=== PATIENT | male | born 1985 | race Asian ===

== ENCOUNTER 2018-03-12 11:42 | Observation (INO) | payer OTHER ==
--- NOTE | 2018-03-12 12:14 | EDPHY ---
H & P Stated Complaint: L flank pain Time Seen by Provider: 03/12/18 12:12 HPI/ROS: HPI: This is a 32-year-old male who presents with Chief Complaint: Left flank Location: Left flank Quality: Pain Duration: 3 days Signs and Symptoms: no fever, + nausea, no vomiting, no hematemesis, no blood in stool, no abdominal bloating, no diarrhea, no back pain, no urinary symptoms , no testicular/groin pain, no indigestion, no chest pain, no shortness of breath Timing: Acute, constant Severity: Moderate intensity Context: Patient reports that he has a history of kidney stones last 1 approximately 3 years ago that required ESWL in [place], presents with sudden onset of left flank pain in the upper portion approximately 3 days ago. He reports that the pain has remained in flank at same spot entire time. Last urination was approximately 2 hr prior to arrival. Denies any blood in his urine. Denies any fever, vomiting. Does report some nausea. Modifying Factors: Tylenol and ibuprofen without relief Comment: ROS: A comprehensive 10 system review of systems is otherwise negative aside from elements mentioned in the history of present illness. MEDICAL/SURGICAL/SOCIAL HISTORY: Medical history: Generally healthy. Does not take any regular medications. Surgical history: Denies Social history: Nonsmoker. Family history noncontributory. CONSTITUTIONAL: Mild distress male, awake and alert, no obvious distress HEENT: Atraumatic and normocephalic, PERRL, EOMI. Nares patent; no rhinorrhea; no nasal mucosal edema. Tympanic membranes clear. Oropharynx clear, no exudate and moist pink mucosa. Airway patent. No lymphadenopathy. No meningismus. Cardiovascular: Normal S1/S2, regular rate, regular rhythm, without murmur rub or gallop. PULMONARY/CHEST: Symmetrical and nontender. Clear to auscultation bilaterally. Good air movement. No accessory muscle usage. ABDOMEN: Soft, nondistended, nontender, no rebound, + guarding, no peritoneal signs, no masses or organomegaly. Left CVAT. EXTREMITIES: 2/2 pulses, strength 5/5, no deformities, no clubbing, no cyanosis or edema. NEUROLOGICAL: no focal neuro deficits. GCS 15. SKIN: Warm and dry, no erythema. no rash. Good capillary refill. Source: Patient Exam Limitations: No limitations - Personal History Current Tetanus/Diphtheria Vaccine: Unsure Current Tetanus Diphtheria and Acellular Pertussis (TDAP): Unsure - Medical/Surgical History Hx Asthma: No Hx Chronic Respiratory Disease: No Hx Diabetes: No Hx Cardiac Disease: No Hx Renal Disease: No Hx Cirrhosis: No Hx Alcoholism: No Hx HIV/AIDS: No Hx Splenectomy or Spleen Trauma: No Other PMH: kidney stones - Social History Smoking Status: Never smoked Constitutional: Initial Vital Signs Temperature (C) 36.8 C 03/12/18 11:51 Heart Rate 77 03/12/18 11:51 Respiratory Rate 16 03/12/18 11:51 Blood Pressure 144/86 H 03/12/18 11:51 O2 Sat (%) 94 03/12/18 11:51 O2 Delivery Mode Room Air Allergies/Adverse Reactions: No Known Allergies Allergy (Unverified 03/12/18 11:50) Home Medications: Medication Instructions Recorded Ibuprofen 03/12/18 Tylenol 03/12/18 Medical Decision Making - Diagnostics Imaging Results: Imaging Impressions Abdomen/Pelvis CT 03/12/18 12:34 Impression: Left UPJ calculus measuring 7.8 mm with associated mild hydronephrosis. Findings and recommendations discussed with Erica Paz at 1326 hour, 2017. ED Course/Re-evaluation: Vital signs reviewed and stable upon arrival. No systemic signs. IV access, laboratory studies, CT abdomen and pelvis scan without contrast, urinalysis ordered Patient given 1 L normal saline, IV morphine 4 mg, IV Toradol 30 mg, IV Zofran 4 mg 1317: Labs reviewed. No leukocytosis. BUN 31, creatinine 1.6. Urinalysis negative, no hematoma, no infection. 1325: Called by radiologist, Dr. Conteh, who reports that CT abdomen and pelvis scan shows 7.8 mm stone on the left at the UPJ with mild hydronephrosis Given Flomax. 1337: Reassessed patient who reports pain is now 7/10. Patient is concerned that he will be unable to pass this stone as it was a similar sized requiring lithotripsy back in [place] 3 years ago. ED decision to consult for admission as patient will likely require stent versus lithotripsy with continued pain management. Spoke with hospitalist, Madina, who kindly agrees to admit patient to med surg under the care of Dr. Soares. Spoke with urology, Dr. Au, who kindly agrees to consult on the patient. This patient was seen under the supervision of my secondary supervising physician. I evaluated care for this patient independently. Discussed this patient with Dr. Issa who did not see the patient. Differential Diagnosis: Flank pain including but not limited to musculoskeletal causes, kidney stone, pyelonephritis, shingles, and intra-abdominal causes such as diverticulitis and appendicitis. - Data Points Laboratory Results: Laboratory Results 03/12/18 12:00 03/12/18 12:00 03/12/18 03/12/18 03/12/18 12:00 12:00 11:55 WBC 9.30 10^3/uL 10^3/uL (3.80-9.50) RBC 5.52 10^6/uL 10^6/uL (4.40-6.38) Hgb 16.1 g/dL g/dL (13.7-17.5) Hct 47.7 % % (40.0-51.0) MCV 86.4 fL fL (81.5-99.8) MCH 29.2 pg pg (27.9-34.1) MCHC 33.8 g/dL g/dL (32.4-36.7) RDW 11.6 % % (11.5-15.2) Plt Count 295 10^3/uL 10^3/uL (150-400) MPV 9.5 fL fL (8.7-11.7) Neut % (Auto) 73.5 % % (39.3-74.2) Lymph % (Auto) 15.5 % % (15.0-45.0) [place] % (Auto) 9.2 % % (4.5-13.0) Eos % (Auto) 1.3 % % (0.6-7.6) Baso % (Auto) 0.3 % % (0.3-1.7) Nucleat RBC Rel Count 0.0 % % (0.0-0.2) Absolute Neuts (auto) 6.83 10^3/uL H 10^3/uL (1.70-6.50) Absolute Lymphs (auto) 1.44 10^3/uL 10^3/uL (1.00-3.00) Absolute Monos (auto) 0.86 10^3/uL H 10^3/uL (0.30-0.80) Absolute Eos (auto) 0.12 10^3/uL 10^3/uL (0.03-0.40) Absolute Basos (auto) 0.03 10^3/uL 10^3/uL (0.02-0.10) Absolute Nucleated RBC 0.00 10^3/uL 10^3/uL (0-0.01) Immature Gran % 0.2 % % (0.0-1.1) Immature Gran # 0.02 10^3/uL 10^3/uL (0.00-0.10) Sodium 136 mEq/L mEq/L (135-145) Potassium 3.7 mEq/L mEq/L (3.5-5.2) Chloride 105 mEq/L mEq/L (97-110) Carbon Dioxide 24 mEq/l mEq/l (22-31) Anion Gap 7 mEq/L mEq/L (6-14) BUN 31 mg/dL H mg/dL (7-23) Creatinine 1.6 mg/dL H mg/dL (0.7-1.3) Estimated GFR 51 Glucose 91 mg/dL mg/dL (70-100) Calcium 9.4 mg/dL mg/dL (8.5-10.4) Urine Color YELLOW Urine Appearance HAZY Urine pH 6.0 (5.0-7.5) Ur Specific [place] 1.027 (1.002-1.030) Urine Protein NEGATIVE (NEGATIVE) Urine Ketones NEGATIVE (NEGATIVE) Urine Blood NEGATIVE (NEGATIVE) Urine Nitrate NEGATIVE (NEGATIVE) Urine Bilirubin NEGATIVE (NEGATIVE) Urine Urobilinogen NEGATIVE EU EU (0.2-1.0) Ur Leukocyte Esterase NEGATIVE (NEGATIVE) Urine Glucose NEGATIVE (NEGATIVE) Medications Given: Discontinued Medications Sodium Chloride (Ns) 1,000 mls @ 0 mls/hr IV ONCE ONE; Wide Open PRN Reason: Protocol Stop: 03/12/18 12:34 Last Admin: 03/12/18 13:14 Dose: 1,000 mls Ketorolac Tromethamine (Toradol) 30 mg IVP EDNOW ONE Stop: 03/12/18 12:34 Last Admin: 03/12/18 13:14 Dose: 30 mg Morphine Sulfate (Morphine) 4 mg IVP EDNOW ONE Stop: 03/12/18 12:35 Last Admin: 03/12/18 13:14 Dose: 4 mg Ondansetron HCl (Zofran) 4 mg IVP EDNOW ONE Stop: 03/12/18 12:34 Last Admin: 03/12/18 13:15 Dose: 4 mg Tamsulosin HCl (Flomax) 0.4 mg PO EDNOW ONE Stop: 03/12/18 13:33 Last Admin: 03/12/18 13:39 Dose: 0.4 mg Departure - Departure Disposition: [facility] Inpatient Acute Clinical Impression: Ureterolithiasis, JOSE R (acute kidney injury), Hydronephrosis due to obstruction of ureter, Intractable abdominal pain Condition: Fair
[2018-03-12] MEDS ORDERED: ONDANSETRON 4 MG/2 ML VIAL IVP ONE (12:33)
[2018-03-12] MEDS ORDERED: NS 1,000 ML IV ONE (12:33)
[2018-03-12] MEDS ORDERED: KETOROLAC 30 MG/1 ML SDV IVP ONE (12:33)
[2018-03-12 12:47] LABS: PLATELET COUNT 295 10^3/uL (150-400)
[2018-03-12] MEDS ORDERED: TAMSULOSIN HCL 0.4 MG CAP PO ONE (13:32)
--- NOTE | 2018-03-12 15:46 | ASMTCMCOM ---
CM Note CM Note Notes: Chart review for discharge planning: Patient is a 32 year old male admitted via [facility] ED for left flank pain, patient reports history of kidney stones. Likely to require stent vs. Lithotripsy. CM to follow. D/C Plan: Likely independent. Date Signed: 03/12/2018 03:46 PM Electronically Signed By:Kandace Kruse
[2018-03-12] MEDS ORDERED: HYDROmorphONE/DILAUDID 6 MG/30 ML PCA IV PRN (16:09)
[2018-03-12] MEDS ORDERED: NALOXONE HCL 0.4 MG/ML INJ IVP PRN (16:09)
[2018-03-12] MEDS ORDERED: PROMETHAZINE HCL 25 MG/ML INJ IVP PRN (16:36)
[2018-03-12] MEDS ORDERED: ACETAMINOPHEN 325 MG TAB PO PRN (16:36)
[2018-03-12] MEDS ORDERED: ONDANSETRON DISINTEGRATING 4 MG TAB PO PRN (16:36)
[2018-03-12] MEDS ORDERED: ONDANSETRON 4 MG/2 ML VIAL IVP PRN (16:36)
--- NOTE | 2018-03-12 17:23 | GHP ---
DATE OF ADMISSION: 03/12/2018 HISTORY OF PRESENT ILLNESS: The patient is a 32-year-old gentleman with a history of nephrolithiasis requiring extracorporeal shock wave lithotripsy in the past who presents with left flank pain that b maddie about 3 days ago. It has been waxing and waning. It is in the same spot. He has been drinking okay. He tells me he did have some blood in his urine, he told the ER physician that he did not. H e has no fever. No vomiting, although he does have some nausea. He has been taking Tylenol, ibuprof en without relief. REVIEW OF SYSTEMS: Complete 10-point review of systems conducted negative, except as noted in the HP I. PAST MEDICAL HISTORY: Nephrolithiasis. ALLERGIES: There are no known drug allergies. HOME MEDICATIONS: Tylenol, ibuprofen. SOCIAL HISTORY: No tobacco. No alcohol. He lives in [place]. 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 FAMILY HISTORY: Reviewed and unremarkable, including no kidney stones. PHYSICAL EXAMINATION: VITAL SIGNS: Temp 36.6, blood pressure 122/70, pulse 74, breathing 16 times a minute, 94% on room air. GENERAL: In no acute distress. HEENT: Sclerae anicteric. Oropharynx cl ear. Mucous membranes moist. NECK: Supple. No lymphadenopathy or JVD. LUNGS: Clear to auscultat ion bilaterally. HEART: S1, S2. ABDOMEN: Soft, nontender, nondistended. LOWER EXTREMITIES: No e catherine. Calves nontender. SKIN: Without rash. NEUROLOGIC: Nonfocal. LABORATORY/IMAGING: CT reviewed by me shows 7.8 mm stone at the left UVJ with some perinephric stran ding and hydronephrosis. Discussed the case with FREDIS Smithin the emergency department. UA negative. Sodium 136, potassium 3.7, chloride 105, bicarb 24, BUN 31, creatinine 1.6, unknown bas timmy. White count 9, hematocrit 47, platelets 295,000. ASSESSMENT/PLAN: A 32-year-old gentleman with nephrolithiasis. 1. Nephrolithiasis. This is unlikely to pass on its own given its size. I have started him on Flom ax and will strain his urine. Urology will see him in the morning. I have confirmed that they have, in fact, been called. I have made him n.p.o. past midnight. 2. Acute kidney injury. Unknown baseline. I assume he has a normal baseline given his age and abse nce of other comorbidities. I will provide with intravenous fluids. The hydronephrosis is noted. U ltimately, he needs resolution of this with stone removal. 3. Pain. Dilaudid patient controlled analgesia. 4. Nausea. Phenergan intravenous. DISPOSITION: Observation status. /[id number]/MODL
[2018-03-12] MEDS: NS 1,000 ML IV SCH (20:20)
--- NOTE | 2018-03-13 02:04 | GCON ---
DATE OF CONSULTATION: 03/12/2018 HISTORY OF PRESENT ILLNESS: This is a 32-year-old gentleman with a history of nephrolithiasis in the past, who presents with left flank pain about 3 days ago. It has been waxing and waning. He did make an appointment with the urologists at [facility] for next week regarding this pain as he suspected it was another stone, but he did come here for a visit. He has had no fever, no vomiting, but he does have nausea, and he was admitted for pain control and for medical management and possible surgical management of the stone. REVIEW OF SYSTEMS: A 10-point review of systems is negative, except for as noted in the HPI. PAST MEDICAL HISTORY: Significant for nephrolithiasis. ALLERGIES: No known drug allergies. HOME MEDICATIONS: Tylenol and ibuprofen. SOCIAL HISTORY: No tobacco. No alcohol. He lives in [place]. 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 FAMILY HISTORY: No history of kidney stones. PHYSICAL EXAMINATION: VITAL SIGNS: Afebrile. Blood pressures are 120s over 70s. Pulse in the 70s. Respiratory rate is 16. 94% on room air. GENERAL: No acute distress. HEENT: Normocephalic, atraumatic. NECK: Supple. Trachea is midline. No lymphadenopathy. LUNGS: No retractions. No pursed-lip breathing. No cyanosis. HEART: No JVD. No cyanosis. ABDOMEN: Soft, nontender, nondistended, except in the left CVA, there is some tenderness to palpation. LOWER EXTREMITIES: No lower extremity edema. Calves nontender. SKIN: No rashes or lesions. NEUROLOGIC: Nonfocal. Appropriate mood and affect. LAB/IMAGING: CT scan was reviewed by me showing an 8 mm stone at the left UVJ with some perinephric stranding and hydronephrosis. His creatinine is 1.6. ASSESSMENT AND PLAN: Nephrolithiasis. This is a large stone with an elevated creatinine and hydronephrosis, nausea, severe pain. He is started on Flomax, and he is interested in surgical management. We have a patient-controlled analgesia going, and it is still not completely controlling his pain. Therefore , we would plan on an operation in the morning. We will perform ureteroscopy with laser lithotripsy. Discussed this with the patient. He is amenable to this and interested in this, and we will arrange this. /[id number]/MODL MTDD
--- NOTE | 2018-03-13 09:07 | HOSPPROG ---
Hospitalist Progress Note Assessment/Plan: 32yo M with h/o nephrolithiasis here with flank pain and nephrolithiasis 1. Acute symptomatic nephrolithiasis: 7.8mm at left UVJ - Urology consulted, Dr Au planning on ureteroscopy w/laser lithotripsy - Continue dilaudid RECONCILIATION ANALYST 2. Elevated creatinine: No known baseline, suspect normal. Injury likely r/t hydronephrosis - IVF, monitor, recheck after stone removal Dispo: Remain obs, possibly dc once stone intervened upon and pain controlled. If not today, will switch to inpatient Subjective: On RECONCILIATION ANALYST but still in pain, no fevers Objective: Vital Signs Temp Pulse Resp BP Pulse Ox 36.8 C 101 H 16 115/72 90 L 03/13/18 08:27 03/13/18 08:27 03/13/18 08:27 03/13/18 08:27 03/13/18 08:27 Laboratory Results 03/13/18 04:06 03/12/18 03/13/18 03/14/18 05:59 05:59 05:59 Intake Total 3392 Balance 3392 - Physical Exam Constitutional: no apparent distress, appears nourished, not in pain Eyes: PERRL, anicteric sclera, EOMI Ears, Nose, Mouth, Throat: moist mucous membranes, hearing normal, ears appear normal, no oral mucosal ulcers Cardiovascular: regular rate and rhythym, no murmur, rub, or gallop Respiratory: no respiratory distress, no rales or rhonchi, clear to auscultation Gastrointestinal: normoactive bowel sounds, soft, non-tender abdomen, no palpable masses Genitourinary: no bladder fullness, no bladder tenderness, no renal bruits Skin: no rashes or abrasions, no fluctuance, no induration Musculoskeletal: full muscle strength, no muscle tenderness, normal joint ROM Neurologic: AAOx3, sensation intact bilaterally Psychiatric: interacting appropriately, not anxious, not encephalopathic, thought process linear ICD10 Worksheet Patient Problems: Problems Problem Status Onset JOSE R (acute kidney injury) Acute Hydronephrosis due to obstruction of ureter Acute Intractable abdominal pain Acute Ureterolithiasis Acute
[2018-03-13] MEDS ORDERED: LR 1,000 ML IV ONE (12:47)
[2018-03-13] MEDS ORDERED: fentaNYL 100 MCG/2 ML INJ ONE ×2 (12:50→13:25)
[2018-03-13] MEDS ORDERED: PROPOFOL 200 MG/20 ML VIAL ONE (12:51)
[2018-03-13] MEDS ORDERED: LIDOCAINE 2% 2 ML INJ ONE ×2 (12:52)
[2018-03-13] MEDS ORDERED: DEXAMETHASONE 4 MG/ML VIAL ONE (12:53)
[2018-03-13] MEDS ORDERED: KETOROLAC 30 MG/1 ML SDV ONE (12:53)
[2018-03-13] MEDS ORDERED: ONDANSETRON 4 MG/2 ML VIAL ONE ×2 (12:53→15:13)
[2018-03-13] MEDS ORDERED: MIDAZOLAM 2 MG/2 ML VIAL IVP ONE (12:56)
--- NOTE | 2018-03-13 12:56 | PDANEPAE ---
ANE History of Present Illness left ureteroscopy ANE Past Medical History - Cardiovascular History Hx Hypertension: No Hx Arrhythmias: No Hx Chest Pain: No Hx Coronary Artery / Peripheral Vascular Disease: No Hx CHF / Valvular Disease: No Hx Palpitations: No - Pulmonary History Hx COPD: No Hx Asthma/Reactive Airway Disease: No Hx Recent Upper Respiratory Infection: No Hx Oxygen in Use at Home: No Hx Sleep Apnea: No Sleep Apnea Screening Result - Last Documented: Negative - Endocrine History Hx Diabetes: No - Chronic Pain History Chronic Pain: No ANE Review of Systems Review of systems is: negative Review of Systems: - Exercise capacity Exercise capacity: >=4 METS ANE Patient History - Allergies Allergies/Adverse Reactions: No Known Allergies Allergy (Verified 03/12/18 13:59) - Home Medications Home medications: home medication list seen and reviewed Home Medications: Acetaminophen [Tylenol 325mg (*)] 325 mg PO Q6 PRN 03/12/18 [Last Taken 03/12/18 ] Ibuprofen [Motrin (*)] 200 mg PO TID PRN 03/12/18 [Last Taken 03/12/18] - NPO status NPO Since - Liquids (Date): 03/12/18 NPO Since - Liquids (Time): 12:00 NPO Since - Solids (Date): 03/12/18 NPO Since - Solids (Time): 12:00 - Anes Hx Anes Hx: no prior problems - Smoking Hx Smoking Status: Never smoked ANE Labs/Vital Signs - Labs Result Diagrams: 03/12/18 12:00 03/13/18 04:06 - Vital Signs Blood Pressure: 133/81 Heart Rate: 101 Respiratory Rate: 14 O2 Sat (%): 94 Height: 172 cm Weight: 60 kg ANE Physical Exam - Airway Neck exam: FROM Mallampati Score: Class 1 Mouth exam: normal dental/mouth exam - Pulmonary Pulmonary: no respiratory distress - Cardiovascular Cardiovascular: regular rate and rhythym - ASA Status ASA Status: I ANE Anesthesia Plan Anesthesia Plan: GA w LMA
[2018-03-13] MEDS ORDERED: LIDOCAINE 2% JELLY 20 ML (UROJECT) ONE (13:13)
[2018-03-13] MEDS ORDERED: IOPAMIDOL (ISOVUE-M 300) 15 ML VIAL ONE (13:14)
[2018-03-13] MEDS ORDERED: MIDAZOLAM 2 MG/2 ML VIAL ONE (13:32)
[2018-03-13] MEDS ORDERED: ceFAZolin 1 GM VIAL ONE ×2 (14:07)
--- NOTE | 2018-03-13 14:12 | POSTANESTH ---
Post Anesthetic Evaluation Cardiovascular Status: Normal, Stable Respiratory Status: Normal, Stable Level of Consciousness/Mental Status: Can Participate in Eval, Alert and Oriented Pain Control: Adequate, Prn Tx Ordered Nausea/Vomiting Control: Adequate, Prn Tx Ordered Complications Possibly Related to Anesthesia: None Noted
[2018-03-13] MEDS ORDERED: LR 500 ML IV PRN (14:14)
[2018-03-13] MEDS ORDERED: oxyCODONE IR 5 MG TAB PO PRN (14:14)
[2018-03-13] MEDS ORDERED: PROMETHAZINE HCL 25 MG/ML INJ IVP PRN (14:14)
[2018-03-13] MEDS ORDERED: NALOXONE HCL 0.4 MG/ML INJ IVP PRN (14:14)
[2018-03-13] MEDS ORDERED: ACETAMINOPHEN 500 MG TAB PO PRN (14:14)
[2018-03-13] MEDS ORDERED: HYDROmorphONE/DILAUDID 2 MG/ML INJ IVP PRN (14:14)
[2018-03-13] MEDS ORDERED: ONDANSETRON 4 MG/2 ML VIAL IVP PRN (14:14)
[2018-03-13] MEDS ORDERED: METOCLOPRAMIDE 10 MG/2 ML VIAL IVP PRN (14:14)
[2018-03-13] MEDS ORDERED: fentaNYL 100 MCG/2 ML INJ IVP PRN (14:14)
[2018-03-13] MEDS ORDERED: ALBUTEROL 3 ML DEYVIAL IH PRN (14:14)
[2018-03-13] MEDS ORDERED: HYDROCODONE/APAP 5/325 TAB PO PRN (14:14)
--- NOTE | 2018-03-13 14:26 | SOAPPROG ---
[facility]OH[facility] Progress Note Assessment/Plan: Assessment: Still w signficant pain - feeling pain in pelvis, Plan on OR for stone removal - ureteroscopy scheduled - Plan: To OR for above - 03/13/18 14:24 Subjective: Pain signficant Objective: Vital Signs Temp Pulse Resp BP Pulse Ox 36.9 C 101 H 14 133/81 H 94 03/13/18 13:30 03/13/18 13:30 03/13/18 13:30 03/13/18 13:30 03/13/18 13:30 Laboratory Results 03/13/18 04:06 03/12/18 03/13/18 03/14/18 05:59 05:59 05:59 Intake Total 3392 Output Total 420 Balance 3392 -420 - Pending Discharge Pending Discharge Within 24 Hours: Yes Pending Discharge Within 48 Hours: Yes Pending Discharge Date: 03/14/18 Pending Discharge Time: 11:00 Physical Exam - Physical Exam EENT: PERRL/EOMI Neck: non-tender Respiratory: chest non-tender Cardiac/Chest: normal peripheral pulses Abdomen: normal bowel sounds Male Genitalia: erythema Rectal: normal exam Back: Normal inspection Skin: normal color Lymphatic: no adenopathy Extremities: normal range of motion Neuro/Psych: no motor/sensory deficits ICD10 Worksheet Patient Problems: Problems Problem Status Onset JOSE R (acute kidney injury) Acute Hydronephrosis due to obstruction of ureter Acute Intractable abdominal pain Acute Ureterolithiasis Acute
--- NOTE | 2018-03-13 14:42 | POSTOPPROG ---
Post Op Note Date of Operation: 03/13/18 Surgeon: Audie Au Anesthesiologist: MATTHEW Anesthesia: GET(General Endotracheal) Pre-op Diagnosis: left UPJ stone Post-op Diagnosis: same Indication: flank pain and renal colic Procedure: left cystoscopy, ureteral dilation and stent placement - Findings: could not perform ureteroscopy Inf/Abcess present in the surg proc area at time of surgery?: No Depth: Superfical (Skin SQ) EBL: 50-100 Drains: Other
[2018-03-13] MEDS ORDERED: KETOROLAC 15 MG/1 ML SDV ONE (15:03)
--- NOTE | 2018-03-13 15:12 | GOP ---
DATE OF OPERATION: 03/13/2018 SURGEON: Audie Au MD DREDGE OPERATOR SUPERVISOR: None. PREOPERATIVE DIAGNOSIS: Left obstructing ureteropelvic junction stone. POSTOPERATIVE DIAGNOSIS: Left obstructing ureteropelvic junction stone. PROCEDURE PERFORMED: Cystoscopy, left ureteral orifice dilation with ureteral access sheath, and lef t JJ stent placement with aborted ureteroscopy, on 03/13/2018. FINDINGS: INDICATIONS: The patient is a very pleasant 32-year-old male with obstructing left UPJ stone, who wa s brought to the operating room for management of this, as pain is severe and he has not advanced to pass the stone. DESCRIPTION OF PROCEDURE: COMPLICATIONS: Ureteral stricture noted. Could not access the stone. This is a very narrow tight u reter all the way up the ureter. Could not advance the scope. Ureteral access sheath advanced with severe difficulty, aborted ureteroscopy. Stent passed easily after dilating ureteric orifice with ur eteral access sheath. PROCEDURE: The patient was identified by name, medical record number, wrist band, and brought to the operating room, placed supine on table, prepped and draped in standard surgical fashion. A 22-Frenc h cystoscope was inserted in the bladder. The entire bladder was visualized. Left and right ureteri c orifices were noted to be in normal location. The left ureter was noted to be very constricted and contracted and the ureteric orifice was very tight and it was difficult to pass a wire through this. I did pass a wire up through the UO, though. I did track up the ureter and into the renal pelvis. I then passed ureteral access sheath along that wire and this advanced with significant difficulty. The ureteroscope was not passed, as this was very tight and I had concerns about disrupting the uret er by passage of scopes. Therefore, a 6-Polish JJ stent was passed, noted to curl in the renal pelvi s and the bladder, so a stent was placed beyond the stone. No stone was manipulated. The bladder wa s emptied and the patient was awakened from anesthesia, brought to the recovery room in stable condit ion. /[id number]/MODL
[2018-03-13] MEDS ORDERED: KETOROLAC 15 MG/1 ML SDV IVP ONE (15:15)
[2018-03-13] MEDS ORDERED: HYDROmorphONE/DILAUDID 1 MG/ML INJ IVP PRN (17:10)
[2018-03-13] MEDS: oxyCODONE IR 5 MG TAB PO PRN (20:15)
[2018-03-13] MEDS: NS 1,000 ML IV SCH (20:40)
[2018-03-13] MEDS: TAMSULOSIN HCL 0.4 MG CAP PO SCH (21:36)
[2018-03-14] MEDS: oxyCODONE IR 5 MG TAB PO PRN (00:54)
[2018-03-14] MEDS: NS 1,000 ML IV SCH (04:33)
[2018-03-14] MEDS ORDERED: OXYBUTYNIN 5 MG EXT REL TAB PO SCH (09:00)
[2018-03-14] MEDS: TAMSULOSIN HCL 0.4 MG CAP PO SCH (10:04)
--- NOTE | 2018-03-14 11:47 | ASMTCMCOM ---
CM Note CM Note Notes: Patient plan of care reviewed in am rounds. 32 year old male with kidney stones admitted via ED with JOSE R and pain. He is a student in [place] and has already made a follow up appointment with urology there. No other needs identified at this time. CM available should needs arise. Plan: Dc to home when medically cleared for discharge. Date Signed: 03/14/2018 11:46 AM Electronically Signed By:Chandrika Florence RN
[2018-03-14 11:50] VITALS: BP 110/60
--- NOTE | 2018-03-14 13:18 | PDDCSUM ---
Discharge Summary Discharge Summary: Date of Admission: 03/12/2018 Date of Discharge: 03/14/2018 Consultants: urology (Dr Au) Studies/Procedures 1. Abdominal CT 2. Left ureteral stent placement Discharge Diagnoses: 1. Acute symptomatic obstructing nephrolithiasis 2. Acute kidney injury Brief Hospital Course: 32yo M with h/o nephrolithiasis presented with left flank pain found to have 7.8mm stone at UPJ. Pain controlled with dilaudid RAIL SIGNAL WORKER. Urology consulted. Performed cystoscopy with left ureteral orifice dilation with ureteral access sheath and subsequent placement of left JJ stent. Ureteroscopy was aborted due to very tight ureter. His pain improved and creatinine down-trended from 1.6 to 1.2. He did have some mild post-procedural hematuria that is expected. He has follow up with a urologist for lithotripsy back in [place]. He was discharged in satisfactory condition. Medications: Please refer to EMR. The following prescriptions were provided to the patient: 1. Percocet 5/325mg q6h PRN #16, 0 refills 2. Flomax 0.4mg capsules daily #30, 0 refills Follow Up Plan: 1. He has appointment with a urologist at [facility] on Monday, 03/19 Physical Exam: Vitals reviewed, afebrile and normotensive. Alert and oriented, RRR, lungs ctab, abd soft and nt, no edema, no flank pain.
--- NOTE | 2018-03-14 13:32 | ASMTLACE ---
ERINN Length of stay for Answers: 1 day current admission Comorbidities - select Answers: Other Notes: Hx of nephrolithiasis all that apply # of Emergency department Answers: 1-2 visits in the last 6 months Score: 3 Date Signed: 03/14/2018 01:31 PM Electronically Signed By:Chandrika Florence RN
--- NOTE | 2018-03-14 13:35 | ASDISCHSUM ---
Discharge Information Plan Status:Home with No Needs Medically Cleared to Leave:03/13/2018 Discharge Date:03/13/2018 CM D/C Disposition:Home, Routine, Self-Care ADT D/C Disposition:Home, Routine, Self-Care Projected Discharge Date:03/13/2018 Transportation at D/C: Discharge Delay Reason: Follow-Up Date:03/13/2018 Discharge Slot: Final Diagnosis: Placement Information Patient Contact Information Contact Name:JYOTI Relationship: Address: Home Phone: Work Phone: City: Alternate Phone: State/[place] Code: Email: Financial Information Financial Class:HMO and PPO Plans Primary Plan Desc:[employer] PPO POS HMO SIG ADM Primary Plan Number:[id number] Secondary Plan Desc: Secondary Plan Number: Assessment Information [facility] CM Progress Note CM Note CM Note Notes: Chart review for discharge planning: Patient is a 32 year old male admitted via [facility] ED for left flank pain, patient reports history of kidney stones. Likely to require stent vs. Lithotripsy. CM to follow. D/C Plan: Likely independent. Date Signed: 03/12/2018 03:46 PM Electronically Signed By:Kandace Kruse LACE LACE Length of stay for Answers: 1 day current admission Comorbidities - select Answers: Other Notes: Hx of nephrolithiasis all that apply # of Emergency department Answers: 1-2 visits in the last 6 months Score: 3 Date Signed: 03/14/2018 01:31 PM Electronically Signed By:Chandrika Florence RN [facility] CM Progress Note CM Note CM Note Notes: Patient plan of care reviewed in am rounds. 32 year old male with kidney stones admitted via ED with JOSE R and pain. He is a student in [place] and has already made a follow up appointment with urology there. No other needs identified at this time. CM available should needs arise. Plan: Dc to home when medically cleared for discharge. Date Signed: 03/14/2018 11:46 AM Electronically Signed By:Chandrika Florence RN Intervention Information Intervention Type:*Incorrect Registration Date of Service:03/12/2018 08:19 PM Patient Type:Observation Staff Member:NICK Ridley Patricia Hours: Discipline: Severity: Comment:
== END 2018-03-14 15:32 | disposition home or self-care (01) ==
LOC: INTOOBSV 13:43 → F1N 15:04
PROVIDERS: ADMIT Internal Medicine; ATTEND Internal Medicine
PROC: BT1F1ZZ Fluoroscopy of Left Kidney, Ureter and Bladder using Low Osmolar Contrast (ICD-10-PCS; principal; 2018-03-12)
PROC: 0T778DZ Dilation of Left Ureter with Intraluminal Device, Via Natural or Artificial Opening Endoscopic (ICD-10-PCS; principal; 2018-03-12)
DX: N13.2 Hydronephrosis with renal and ureteral calculous obstruction (principal); N17.9 Acute kidney failure, unspecified; Z87.442 Personal history of urinary calculi
CPT/HCPCS: 52332; 52344; 74176; 76000; C1758; C1769; C1894; G0378; 96374; C2625; J0690; J1100; J1170; J1885; J2250; J2270; J2405; J2704; J3010; Q9967